=== PATIENT | male | born 1960 | race Caucasian/White ===

== ENCOUNTER 2020-09-04 14:57 | Emergency (ER) | payer MEDICARE, SELFPAY ==
[2020-09-04] VITALS (9 sets, daily range): BP systolic 114–154; BP diastolic 74–98; PULSE 73–114; RESP 16–22; TEMP 36.6–36.8; O2SAT 91–98; BMI 24.4
--- NOTE | 2020-09-04 14:59 | CT_ITS ---
PROCEDURE INFORMATION: Exam: CT Head Without Contrast Exam date and time: 09/04/2020 2:59 PM Age: 59 years old Clinical indication: Weakness, extremity; Patient HX: Right sided weakness; Additional info: Code stroke TECHNIQUE: Imaging protocol: Computed tomography of the head without contrast. Radiation optimization: All CT scans at this facility use at least one of these dose optimization techniques: automated exposure control; mA and/or kV adjustment per patient size (includes targeted exams where dose is matched to clinical indication); or iterative reconstruction. Other technique: STROKE PROTOCOL was implemented. COMPARISON: CR NSB NASAL BONES 04/28/2016 11:13 PM FINDINGS: Brain: Normal. No hemorrhage. Unremarkable white matter. No mass effect. Cerebral ventricles: No ventriculomegaly. Paranasal sinuses: Visualized sinuses are unremarkable. No fluid levels. Mastoid air cells: Visualized mastoid air cells are well aerated. Bones/joints: Unremarkable. No acute fracture. Soft tissues: Unremarkable. IMPRESSION: No acute intracranial abnormality. ASSESSMENT: ASPECTS ([place] Stroke Program Early CT Score) is 10.
--- NOTE | 2020-09-04 15:01 | HMH.EDGENADL ---
ED Disposition Clinical Impression: Stroke-like symptoms, Right sided weakness, Methamphetamine abuse, Urinary retention, Recurrent falls Disposition: Xfer Short-Term Hosp Condition on Discharge: Fair Time of Disposition: 18:29 - Critical Care Critical Care Time: Yes Attestation: On , the high probability of a clinically significant, sudden or life threatening deterioration of the following system(s) required my full and direct attention, intervention and personal management. The time I documented below is in addition to time spent performing reported procedures but includes the following listed in this critical care notation. Total Critical Care Time: 65 Vital system(s) involved:: Central Nervous System My critical care processes included: Assessment & monitoring of V/S, Initial and Re-exams, Data Review/Interpretation, Coordinating Care, Documentation Medical Decision Making - Medical Records Medical records reviewed: Yes: I reviewed the patient's medical records. - [place] Inquiry Pt receiving controlled substance: No Vital Signs: 09/04/20 14:57 Temperature 97.9 F Temperature Source Oral Pulse Rate [Left] 114 H Respiratory Rate 21 Blood Pressure [Right Arm] 154/98 H Blood Pressure Mean [Right Arm] 116 Blood Pressure Source [Right Arm] Automatic Cuff 02 Sat by Pulse Oximetry 94 L Oxygen Delivery Method Room Air - Lab Data Lab results reviewed: Yes: I reviewed the patient's lab results. Lab Results 09/04/20 13:06: WBC 19.9 H, RBC 4.66, Hgb 13.5 L, Hct 38.5 L, MCV 82.6, MCH 29.1, MCHC 35.2, RDW 14.3, Plt Count 277, MPV 8.0, Neut % (Auto) 89.2 H, Lymph % (Auto) 4.8 L, Wilkes % (Auto) 5.6, Eos % (Auto) 0.2, Baso % (Auto) 0.1, Neut # (Auto) 17.7 H, Lymph # (Auto) 1.0, Wilkes # (Auto) 1.1 H, Eos # (Auto) 0.0, Baso # (Auto) 0.0, Total Counted 100, Neutrophils % (Manual) 88 H, Lymphocytes % (Manual) 8 L, Monocytes % (Manual) 4, Platelet Estimate Normal, RBC Morphology Normal 09/04/20 13:06: Sodium 135 L, Potassium 3.6, Chloride 100, Carbon Dioxide 28, Anion Gap 10.6, BUN 11, Creatinine 0.60 L, Estimated GFR 138, Est GFR ( Amer) 167, Glucose 140 H, Calcium 10.6 H, Total Bilirubin 0.8, AST 25, ALT 30, Alkaline Phosphatase 97, Troponin I < 0.01, Total Protein 7.3, Albumin 3.9, Globulin 3.4 H, Albumin/Globulin Ratio 1.1 09/04/20 17:57: Urine Color Yellow, Urine Appearance Clear, Urine pH 6.5, Ur Specific [place] 1.015, Urine Protein Trace, Urine Glucose (UA) Negative, Urine Ketones Negative, Urine Blood Trace-l, Urine Nitrate Negative, Urine Bilirubin Negative, Urine Urobilinogen 4.0, Ur Leukocyte Esterase Negative, Urine RBC 3-5, Urine WBC Occasional, Ur Squamous Epith Cells Occasional, Urine Bacteria None 09/04/20 17:57: Urine Opiates Screen Negative, Urine Methadone Screen Negative, Ur Barbituates Screen Negative, Ur Phencyclidine Scrn Negative, U Benzodiazepines Scrn Negative, Urine Cocaine Screen Negative, U Marijuana (THC) Screen Positive H Result diagrams: 09/04/20 13:06 09/04/20 13:06 Orders (Tests/Meds): ED MEDICATIONS Discontinued Medications Generic Name Dose Route Start Last Admin Trade Name Freq PRN Reason Stop Dose Admin Iopamidol 100 ml 09/04/20 16:39 09/04/20 16:39 Iopamidol-370 (76%);100ml Bottle IV 09/04/20 16:40 100 ml ONCE ONE Administration Sodium Chloride 50 ml 09/04/20 16:39 09/04/20 16:39 0.9 % Sodium Chloride 50 Ml Vial IV 09/04/20 16:40 50 ml ONCE ONE Administration Sodium Chloride 10 ml 09/04/20 16:39 09/04/20 16:39 Sodium Chloride 0.9% 10ml Syr (Rad Only) IV 09/04/20 16:40 10 ml ONCE ONE Administration ORDERS Category Date Time Status Drug Screen,Urine Stat Lab 09/04/20 17:57 Results Troponin I Q3H Lab 09/04/20 18:15 Received Troponin I Q3H Lab 09/04/20 21:00 Ordered - CT Data CT Scan: Head, C-Spine Time Received: 15:[address] Reviewed: Yes: I have reviewed the patient's CT results Preliminary Findings: Normal/NAD - ECG Data *
[2020-09-04 15:06] LABS: Basophils % 0.1 % (0.1-2.0); Eosinophils % 0.2 % (0.1-12.0); Hematocrit 38.5 % (42.0-52.0); Hemoglobin 13.5 g/dL (14.1-18.0); Lymphocytes % 4.8 % (10-50); Mean Corpuscular HGB Conc 35.2 g/dL (31.8-35.4); Mean Corpuscular Hemoglobin 29.1 pg (27.0-31.2); Mean Corpuscular Volume 82.6 fl (80-94); Monocytes # 1.1 K/mm3 (0.1-1.0); Monocytes % 5.6 % (1.7-9.3); Neutrophils # 17.7 K/mm3 (1.8-7.8); Neutrophils % 89.2 % (37.0-80.0); Platelet Count 277 K/mm3 (142-424); Red Blood Count 4.66 M/mm3 (4.60-6.20); Red Cell Distribution Width 14.3 % (11.5-17.5); White Blood Count 19.9 K/mm3 (4.8-10.8)
[2020-09-04 15:07] LABS: MANUAL DIFFERENTIAL MANUAL DIFFERENTIAL (MANUAL DIFF)
[2020-09-04 15:15] LABS: Alanine Aminotransferase 30 U/L (12-78); Albumin Level 3.9 g/dl (3.5-5.0); Albumin/Globulin Ratio 1.1 (1.1-1.8); Alkaline Phosphatase 97 U/L (38-126); Anion Gap 10.6 mEq/L (5-15); Aspartate Amino Transferase 25 U/L (17-59); Bilirubin,Total 0.8 mg/dl (0.2-1.3); Blood Urea Nitrogen 11 mg/dl (9-20); Calcium 10.6 mg/dl (8.4-10.2); Carbon Dioxide 28 mmol/L (22.0-30.0); Chloride 100 mmol/L (98-107); Estimated Glomerular Filt Rate 138 ml/min (>60); GFR (African American) 167 ML/MIN (>60); Globulin 3.4 g/dL (1.3-3.2); Glucose 140 mg/dl (74-100); Potassium 3.6 mmoL/L (3.5-5.1); Sodium 135 mmol/L (136-145); Total Protein,Serum 7.3 g/dl (6.3-8.2)
[2020-09-04 15:17] LABS: Lymphocytes % 8 % (10-50); Monocytes % 4 % (2-9); Neutrophils % 88 % (42-76); Platelet Estimate Normal; RBC Morphology Normal; Total Cells Counted 100
[2020-09-04 15:29] LABS: Troponin I < 0.01 ng/ml (0.00-0.034)
--- NOTE | 2020-09-04 15:39 | CT_ITS ---
PROCEDURE INFORMATION: Exam: CT Angiography Neck With Contrast Exam date and time: 09/04/2020 3:39 PM Age: 59 years old Clinical indication: Patient HX: Right sided weakness; Additional info: Code stroke TECHNIQUE: Imaging protocol: Computed tomography angiography of the neck with contrast. 3D rendering (Not supervised by radiologist): MIP and/or 3D reconstructed images were created by the technologist. Radiation optimization: All CT scans at this facility use at least one of these dose optimization techniques: automated exposure control; mA and/or kV adjustment per patient size (includes targeted exams where dose is matched to clinical indication); or iterative reconstruction. Contrast material: ISOVUE; Contrast volume: 100 ml; Contrast route: INTRAVENOUS (IV); COMPARISON: CT HEAD/BRAIN WO CON 09/04/2020 3:00 PM FINDINGS: Right common carotid artery: No stenosis. No dissection or occlusion. Right internal carotid artery: No stenosis of the extracranial segment. No dissection or occlusion. Right external carotid artery: No occlusion or stenosis of the origin. Left common carotid artery: No stenosis. No dissection or occlusion. Left internal carotid artery: No stenosis of the extracranial segment. No dissection or occlusion. Left external carotid artery: No occlusion or stenosis of the origin. Right vertebral artery: The right vertebral artery is hypoplastic. Left vertebral artery: No stenosis. No dissection or occlusion. Soft tissues: Normal. No significant soft tissue swelling. Bones/joints: Degeneration in the cervical spine. Mediastinal space: There is prominence of the upper left mediastinum which is only partially imaged. The trachea appears to be displaced rightward. IMPRESSION: No internal carotid artery stenosis by NASCET criteria. REFERENCES: NASCET CRITERIA. The degree of internal carotid artery stenosis is based on NASCET criteria. Normal is no stenosis. Mild is less than 50% stenosis. Moderate is 50-69% stenosis. Severe is 70% to 99% stenosis. Total occlusion is no detectable patent lumen.
--- NOTE | 2020-09-04 15:39 | CT_ITS ---
PROCEDURE INFORMATION: Exam: CT Angiography Head With Contrast, Arteriography Exam date and time: 09/04/2020 3:39 PM Age: 59 years old Clinical indication: Patient HX: Weakness on right side; Additional info: Code stroke TECHNIQUE: Imaging protocol: Computed tomography angiography of the head with contrast. Exam focused on the arteries. 3D rendering (Not supervised by radiologist): MIP and/or 3D reconstructed images were created by the technologist. Radiation optimization: All CT scans at this facility use at least one of these dose optimization techniques: automated exposure control; mA and/or kV adjustment per patient size (includes targeted exams where dose is matched to clinical indication); or iterative reconstruction. Contrast material: ISOVUE; Contrast volume: 100 ml; Contrast route: INTRAVENOUS (IV); COMPARISON: CT HEAD/BRAIN WO CON 09/04/2020 3:00 PM FINDINGS: ANTERIOR CIRCULATION: Right internal carotid artery: Unremarkable. Intracranial segment is patent with no significant stenosis. No aneurysm. Right middle cerebral artery: Unremarkable. No occlusion or significant stenosis. No aneurysm. Right anterior cerebral artery: Unremarkable. No occlusion or significant stenosis. No aneurysm. Left internal carotid artery: Unremarkable. Intracranial segment is patent with no significant stenosis. No aneurysm. Left middle cerebral artery: Unremarkable. No occlusion or significant stenosis. No aneurysm. Left anterior cerebral artery: The left A1 segment is hypoplastic. POSTERIOR CIRCULATION: Right vertebral artery: Unremarkable. No occlusion or significant stenosis. No aneurysm. Left vertebral artery: Unremarkable. No occlusion or significant stenosis. No aneurysm. Basilar artery: Unremarkable. No occlusion or significant stenosis. No aneurysm. Right posterior cerebral artery: The right posterior cerebral artery is constituted from the basilar artery. Left posterior cerebral artery: origin of the left posterior cerebral artery. Brain: No definite mass, mass effect, or midline shift. Cerebral ventricles: No significant ventriculomegaly. Bones/joints: Left mastoidectomy. Soft tissues: Unremarkable. IMPRESSION: No large vessel occlusion.
--- NOTE | 2020-09-04 16:41 | ECG_ITS ---
APPROVED REPORT Exam: Resting ECG HR:107 bpm ECG Measurements Heart Rate 107 AXES NJ 168 P 71 QRSd 88 QRS 34 QT 332 T 64 QTc 443 Conclusion Sinus tachycardia Possible Left atrial enlargement Old anteroseptal changes Abnormal ECG Electronically signed by : Juan David Pierce, 09/05/2020 20:41:07
[2020-09-04 18:02] LABS: Microscopic, Urine URINE MICROSCOPIC (MICROSCOPIC)
[2020-09-04 18:06] LABS: Appearance,Urine CLEAR (Clear); Bilirubin,Urine Negative (Negative); Blood, Urine TRACE-L (Negative); Color,Urine YELLOW (Yellow); Glucose,Urine (UA) Negative (Negative); Ketones,Urine Negative (Negative); Leukocyte Esterase,Urine Negative (Negative); Nitrate,Urine Negative (Negative); PH,Urine 6.5 (5.0-8.5); Protein,Urine TRACE (Negative); Specific Gravity, Urine 1.015 (1.005-1.030)
--- NOTE | 2020-09-04 18:06 | PC.NURSE ---
placed call to [facility] for [facility]
[2020-09-04 18:16] LABS: Barbiturates Screen,Urine Negative ng/ml (<200)
[2020-09-04 18:17] LABS: Benzodiazepines Screen,Urine Negative ng/ml (<200)
[2020-09-04 18:18] LABS: Cannabinoid Screen,Urine Positive ng/ml (<50); Cocaine Screen,Urine Negative ng/ml (<300)
[2020-09-04 18:19] LABS: Methadone Screen,Urine Negative ng/ml (<300); Squamous Epithelial Cell,Urine Occasional #/hpf (0-5); WBC,Urine Occasional #/hpf (0-3)
[2020-09-04 18:20] LABS: Opiate Screen,Urine Negative ng/ml (<300); Phencyclidine Screen,Urine Negative ng/ml (<25)
[2020-09-04 18:29] LABS: Amphetamine/Metha Screen,Urine Positive ng/ml (<1000)
[2020-09-04 18:50] LABS: Troponin I < 0.01 ng/ml (0.00-0.034)
--- NOTE | 2020-09-04 19:01 | PC.NURSE ---
Patients daughter is reported as next of kin, Name is Jewels Campos, [phone], son is Brando Campos [id number]
--- NOTE | 2020-09-04 19:06 | PC.WOUNDNOTE ---
laceration on greater right toe. Left open to air per md.
== END 2020-09-04 20:47 | disposition short-term general hospital (02) ==
PROVIDERS: Emergency Provider Family Medicine; PCP Pediatrics
DX: I63.89 Other cerebral infarction (principal); G81.93 Hemiplegia, unspecified affecting right nondominant side; R29.713 NIHSS score 13; F12.10 Cannabis abuse, uncomplicated; F15.10 Other stimulant abuse, uncomplicated; R29.6 Repeated falls
CPT/HCPCS: 36415; 70450; 70496; 70498; 80053; 80305; 81001; 84484; 85007; 85025; 93005; 99284; Q9967

== ENCOUNTER 2021-01-28 01:00 | Observation (INO) | payer MEDICARE, SELFPAY ==
[2021-01-28] VITALS (7 sets, daily range): BP systolic 100–125; BP diastolic 57–82; PULSE 84–102; RESP 16–18; TEMP 36.4–36.6; O2SAT 96–100; BMI 23.0; BMI 28.1; BMI 26.8
--- NOTE | 2021-01-28 01:03 | CT_ITS ---
PROCEDURE INFORMATION: Exam: CT Abdomen And Pelvis With Contrast Exam date and time: 01/28/2021 1:03 AM Age: 60 years old Clinical indication: Abdominal pain; Additional info: Abd pain TECHNIQUE: Imaging protocol: Computed tomography of the abdomen and pelvis with contrast. Radiation optimization: All CT scans at this facility use at least one of these dose optimization techniques: automated exposure control; mA and/or kV adjustment per patient size (includes targeted exams where dose is matched to clinical indication); or iterative reconstruction. Contrast material: ISOVUE; Contrast volume: 75 ml; Contrast route: IV; COMPARISON: No relevant prior studies available. FINDINGS: Lungs: Mild dependent atelectasis. Liver: Unremarkable. No intrahepatic biliary dilation. Gallbladder and bile ducts: Cholelithiasis. No gallbladder wall thickening. No biliary dilation. Pancreas: Unremarkable. No main pancreatic duct dilation. Spleen: Calcified granulomas in the spleen. Adrenal glands: Unremarkable. Kidneys and ureters: Left lower pole cyst measuring 1.4 cm in size. Right renal caliceal calculi measuring up to 0.2 cm in size. No hydronephrosis. Stomach and bowel: Large colonic stool burden suggesting constipation. No small bowel dilation or obstruction. Appendix: Normal appendix. Intraperitoneal space: No pneumoperitoneum. No ascites. Vasculature: No abdominal aortic aneurysm. Lymph nodes: No enlarged lymph nodes. Urinary bladder: Bladder is fluid-filled, with borderline wall thickening. There is layering high attenuation fluid within the dependent portion of the bladder suggesting hemorrhage. Reproductive: Prostate gland is mildly enlarged. Coarse calcifications are present within the prostate gland. Bones/joints: No acute fracture. Multilevel spondylosis. Spinal canal stenosis appears high-grade at L3-L4 and L4-L5. Moderate to advanced multilevel neural foraminal narrowing. Soft tissues: Small bilateral inguinal hernias containing fat. There is a small to moderate size umbilical hernia containing fat. There is mild nonspecific vascular congestion within the hernia sac. IMPRESSION: 1. Distended bladder with borderline wall thickening and layering high attenuation fluid suggesting hematuria. Correlation with urinalysis is recommended. 2. Large colonic stool burden compatible with constipation. 3. Other chronic findings as above.
--- NOTE | 2021-01-28 01:03 | CT_ITS ---
PROCEDURE INFORMATION: Exam: CT Lumbar Spine With Contrast Exam date and time: 01/28/2021 1:03 AM Age: 60 years old Clinical indication: Low back pain; Additional info: Abd pain TECHNIQUE: Imaging protocol: Computed tomography images of the lumbar spine with intravenous contrast. Radiation optimization: All CT scans at this facility use at least one of these dose optimization techniques: automated exposure control; mA and/or kV adjustment per patient size (includes targeted exams where dose is matched to clinical indication); or iterative reconstruction. Contrast material: ISOVUE; Contrast volume: 75 ml; Contrast route: IV; COMPARISON: No relevant prior studies available. FINDINGS: Vertebrae: Mild dextroconvex lumbar curvature. Minimal right lateral listhesis and grade 1 retrolisthesis of L3 on L4. Lumbar vertebral body heights are maintained. No acute fracture. Remote, ununited fracture defect of the left L1 transverse process. Multilevel disc height loss and Schmorl's node formation, most advanced at L3-L4 and L4-L5. L1-L2: Circumferential disc bulge. Mild degenerative facet hypertrophy and ligamentum flavum thickening. Mild spinal canal stenosis. Mild left greater than right neural foraminal narrowing. L2-L3: Circumferential disc bulging. Mild to moderate facet hypertrophy and ligamentum flavum thickening. Moderate spinal canal stenosis. Moderate to severe lateral recess effacement, which may affect the descending L3 nerve roots. Moderate left greater than right neural foraminal stenosis. L3-L4: Circumferential disc bulging and degenerative endplate spurring. Moderate facet hypertrophy and ligamentum flavum thickening. Moderate to severe spinal canal stenosis. Severe lateral recess effacement, with probable impingement of the descending L4 nerve roots. Severe left and moderate to severe right neural foraminal narrowing. L4-L5: Circumferential disc bulging and degenerative endplate spurring. Marked degenerative facet hypertrophy and ligamentum flavum thickening. Severe spinal canal and lateral recess stenosis with impingement of the descending L5 nerve roots. Severe right and moderate to severe left neural foraminal narrowing. L5-S1: Circumferential disc bulging. Moderate to marked facet hypertrophy. Mild ligamentum flavum thickening. Minimal effacement of the spinal canal and lateral recesses. Moderate right and [id number] left neural foraminal narrowing. Soft tissues: No paravertebral edema or fluid collection. Findings within the abdomen/pelvis reported separately. IMPRESSION: 1. No acute lumbar spine fracture. Mild dextroconvex curvature. Mild degenerative malalignment at L3-L4. 2. Multilevel spondylosis as detailed above.
--- NOTE | 2021-01-28 01:38 | HMH.EDGENADL ---
ED Disposition Clinical Impression: Urinary retention, Methamphetamine abuse, Lumbar spondylosis UTI (urinary tract infection) Qualifiers: Urinary tract infection type: acute cystitis Hematuria presence: without hematuria Qualified Code(s): N30.00 - Acute cystitis without hematuria Disposition: Admitted As Inpatient Condition on Discharge: Good - Critical Care Critical Care Time: No Attestation: On 01/28/21, the high probability of a clinically significant, sudden or life threatening deterioration of the following system(s) required my full and direct attention, intervention and personal management. The time I documented below is in addition to time spent performing reported procedures but includes the following listed in this critical care notation. Medical Decision Making - Medical Records Medical records reviewed: Yes: I reviewed the patient's medical records. - [place] Inquiry Pt receiving controlled substance: No Vital Signs: 01/28/21 00:53 01/28/21 03:00 01/28/21 03:31 Temperature 97.9 F Temperature Source Oral Pulse Rate 93 H 92 H Pulse Rate [Right] 102 H Respiratory Rate 18 Blood Pressure 100/75 L 122/74 Blood Pressure [Right Arm] 125/82 Blood Pressure Mean 82 85 Blood Pressure Mean [Right Arm] 96 02 Sat by Pulse Oximetry 100 96 98 Oxygen Delivery Method Room Air - Lab Data Lab results reviewed: Yes: I reviewed the patient's lab results. Lab Results 01/28/21 01:35: Urine Color Yellow, Urine Appearance Clear, Urine pH 8.0, Ur Specific [place] 1.020, Urine Protein 1+, Urine Glucose (UA) Negative, Urine Ketones Negative, Urine Blood 1+, Urine Nitrate Positive, Urine Bilirubin Negative, Urine Urobilinogen 0.2, Ur Leukocyte Esterase 3+ A, Urine RBC 3-5, Urine WBC 5-10, Triple Phos Crystals 1+, Urine Bacteria 4+, Urine Mucus 1+ 01/28/21 01:35: Urine Opiates Screen Negative, Urine Methadone Screen Negative, Ur Barbituates Screen Negative, Ur Phencyclidine Scrn Negative, Ur Amphetamines Screen Principal Security Architect, U Benzodiazepines Scrn Positive H, Urine Cocaine Screen Negative, U Marijuana (THC) Screen Positive H 01/28/21 01:35: Lactate 1.1 01/28/21 01:40: WBC 7.7, RBC 5.02, Hgb 12.9 L, Hct 40.4 L, MCV 80.5, MCH 25.6 L, MCHC 31.8, RDW 18.1 H, Plt Count 320, MPV 8.0, Neut % (Auto) 61.5, Lymph % (Auto) 28.0, [place] % (Auto) 7.1, Eos % (Auto) 1.5, Baso % (Auto) 1.9, Neut # (Auto) 4.7, Lymph # (Auto) 2.2, [place] # (Auto) 0.6, Eos # (Auto) 0.1, Baso # (Auto) 0.2, ESR 54 H 01/28/21 01:40: Sodium 136, Potassium 4.0, Chloride 104, Carbon Dioxide 28, Anion Gap 8.0, BUN 16, Creatinine 0.60 L, Estimated Creat Clear 157, Estimated GFR 138, Est GFR ( Amer) 167, Glucose 86, Calcium 10.2, Phosphorus 2.9, Magnesium 1.7, Total Bilirubin 0.2, AST 25, ALT 21, Alkaline Phosphatase 66, Total Creatine Kinase 68, C-Reactive Protein 95.3 H, Total Protein 6.1 L, Albumin 3.5, Globulin 2.6, Albumin/Globulin Ratio 1.3, Salicylates < 1.0 L, Acetaminophen < 10 L 01/28/21 01:40: Plasma/Serum Alcohol < 10 01/28/21 01:40: NT-Pro-B Natriuret Pep 61.4 Result diagrams: 01/28/21 01:40 01/28/21 01:40 Orders (Tests/Meds): ED MEDICATIONS Generic Name Dose Route Start Last Admin Trade Name Freq PRN Reason Stop Dose Admin Sodium Chloride 1,000 mls @ 999 mls/hr 01/28/21 01:45 01/28/21 01:40 Sod Chlor 0.9% 1000ml Bag IV 01/28/21 02:45 999 mls/hr .Q1H1M PRESTON Administration Ceftriaxone Sodium 1 gm/ 50 mls @ 100 mls/hr 01/28/21 03:30 01/28/21 03:25 Sodium Chloride IV 02/11/21 03:29 100 mls/hr Q24H PRESTON Administration Discontinued Medications Generic Name Dose Route Start Last Admin Trade Name Freq PRN Reason Stop Dose Admin Ertapenem 1 gm/ Sodium 50 mls @ 100 mls/hr 01/28/21 04:00 01/28/21 04:04 Chloride IV 02/11/21 03:59 Not Given Q24H PRESTON Iopamidol 75 ml 01/28/21 02:45 01/28/21 02:45 Iopamidol-370 (76%);100ml Bottle IV 01/28/21 02:46 75 ml ONCE ONE Administration Sodium Chloride 10 ml 12
[2021-01-28 01:47] LABS: Basophils # 0.2 K/mm3 (0-0.2); Basophils % 1.9 % (0.1-2.0); Eosinophils # 0.1 K/mm3 (0.0-0.4); Eosinophils % 1.5 % (0.1-12.0); Hematocrit 40.4 % (42.0-52.0); Hemoglobin 12.9 g/dL (14.1-18.0); Lymphocytes # 2.2 K/mm3 (0.7-4.5); Mean Corpuscular HGB Conc 31.8 g/dL (31.8-35.4); Mean Corpuscular Hemoglobin 25.6 pg (27.0-31.2); Mean Corpuscular Volume 80.5 fl (80-94); Monocytes # 0.6 K/mm3 (0.1-1.0); Monocytes % 7.1 % (1.7-9.3); Neutrophils # 4.7 K/mm3 (1.8-7.8); Neutrophils % 61.5 % (37.0-80.0); Platelet Count 320 K/mm3 (142-424); Red Blood Count 5.02 M/mm3 (4.60-6.20); Red Cell Distribution Width 18.1 % (11.5-17.5); White Blood Count 7.7 K/mm3 (4.8-10.8)
[2021-01-28 01:58] LABS: Microscopic, Urine URINE MICROSCOPIC (MICROSCOPIC)
[2021-01-28 02:00] LABS: Appearance,Urine CLEAR (Clear); Bilirubin,Urine Negative (Negative); Blood, Urine 1+ (Negative); Color,Urine YELLOW (Yellow); Glucose,Urine (UA) Negative (Negative); Ketones,Urine Negative (Negative); Leukocyte Esterase,Urine 3+ (Negative); Nitrate,Urine POSITIVE (Negative); Protein,Urine 1+ (Negative); Urobilinogen,Urine 0.2 EU/dl (0.2)
[2021-01-28 02:07] LABS: Alanine Aminotransferase 21 U/L (12-78); Albumin Level 3.5 g/dl (3.5-5.0); Albumin/Globulin Ratio 1.3 (1.1-1.8); Alkaline Phosphatase 66 U/L (38-126); Aspartate Amino Transferase 25 U/L (17-59); Bilirubin,Total 0.2 mg/dl (0.2-1.3); Blood Urea Nitrogen 16 mg/dl (9-20); Calcium 10.2 mg/dl (8.4-10.2); Carbon Dioxide 28 mmol/L (22.0-30.0); Chloride 104 mmol/L (98-107); Creatine Kinase 68 U/L (55-170); Creatinine Clearance Estimated 157 mL/min (50-200); Estimated Glomerular Filt Rate 138 ml/min (>60); GFR (African American) 167 ML/MIN (>60); Globulin 2.6 g/dL (1.3-3.2); Glucose 86 mg/dl (74-100); Magnesium 1.7 mg/dl (1.6-2.3); Phosphorous 2.9 mg/dl (2.5-4.5); Sodium 136 mmol/L (136-145); Total Protein,Serum 6.1 g/dl (6.3-8.2)
[2021-01-28 02:09] LABS: Acetaminophen < 10 ug/ml (10-30); Ethyl Alcohol < 10 mg/dl (0-10); Salicylate < 1.0 mg/dL (2.0-20.0)
[2021-01-28 02:12] LABS: C-Reactive Protein 95.3 mg/L (0-4)
[2021-01-28 02:13] LABS: Barbiturates Screen,Urine Negative ng/ml (<200)
[2021-01-28 02:14] LABS: Benzodiazepines Screen,Urine Positive ng/ml (<200)
[2021-01-28 02:16] LABS: Cocaine Screen,Urine Negative ng/ml (<300); Methadone Screen,Urine Negative ng/ml (<300)
[2021-01-28 02:17] LABS: Bacteria,Urine 4+ /lpf; Cannabinoid Screen,Urine Positive ng/ml (<50); Mucus,Urine 1+ /lpf; Triple Phosphate Crystal,Urine 1+ /lpf
[2021-01-28 02:18] LABS: Opiate Screen,Urine Negative ng/ml (<300)
[2021-01-28 02:19] LABS: Phencyclidine Screen,Urine Negative ng/ml (<25)
[2021-01-28 02:27] LABS: Erythrocyte Sedimentation Rate 54 mm/hr (0-20)
--- NOTE | 2021-01-28 03:30 | PC.NURSE ---
16 f calix inserted for acute retention
[2021-01-28 03:36] LABS: Lactic Acid 1.1 mmol/L (0.7-2.1)
--- NOTE | 2021-01-28 03:41 | PC.NURSE ---
kayleigh on phone with dr reyes @ this time
[2021-01-28 04:10] LABS: Coronavirus 19, PCR Not Detected (NotDetected); Influenza A, PCR Not Detected (NotDetected); Influenza B, PCR Not Detected (NotDetected)
[2021-01-28 04:27] LABS: NT Pro Brain Natriuretic Pep. 61.4 pg/mL (0-125)
--- NOTE | 2021-01-28 05:27 | XR_ITS ---
PROCEDURE INFORMATION: Exam: XR Chest Exam date and time: 01/28/2021 5:27 AM Age: 60 years old Clinical indication: Sternal or substernal pain TECHNIQUE: Imaging protocol: XR of the chest. Views: 1 view. COMPARISON: CT ABDOMEN PELVIS W CON 01/28/2021 2:00 AM FINDINGS: Lungs: Unremarkable. No consolidation. Pleural spaces: Unremarkable. No pleural effusion. No pneumothorax. Heart/Mediastinum: Unremarkable. No cardiomegaly. Bones/joints: Unremarkable. IMPRESSION: No acute findings.
--- NOTE | 2021-01-28 06:04 | PC.NURSE ---
PT ARRIVED TO FLOOR VIA STRETCHER FROM ED W/STAFF @ [phone]
--- NOTE | 2021-01-28 07:31 | PC.NURSE ---
pt unable to effectively complete admission questions, nor state what meds he takes at home
--- NOTE | 2021-01-28 07:48 | P.CONPHA_ITS ---
[facility] Pharmacy VTE Monitoring - Patient Demographics Admission date: 01/28/21 Report Date: 01/28/21 Time: 07:48 Allergies/Adverse Reactions: Patient Allergies codeine [CODEINE] Allergy (Unknown, Verified 01/28/21 04:03) I-RASH quetiapine [From SEROQUEL] Allergy (Unknown, Verified 01/28/21 04:03) Height: 1.83 m Weight: 89.613 kg Patient Problems: Current Active Problems UTI (urinary tract infection) (Acute) Lumbar spondylosis (Acute) Methamphetamine abuse (Acute) Urinary retention (Acute) - VTE Risk Labs: VTE Related Lab Results Hgb 12.9 g/dL (14.1-18.0) L 01/28/21 01:40 Hct 40.4 % (42.0-52.0) L 01/28/21 01:40 Plt Count 320 K/mm3 (142-424) 01/28/21 01:40 BUN 16 mg/dl (9-20) 01/28/21 01:40 Creatinine 0.60 mg/dl (0.66-1.25) L 01/28/21 01:40 Estimated Creat Clear 157 mL/min (50-200) 01/28/21 01:40 Was VTE Risk Assessment Performed: Yes VTE Score: 3 VTE Risk Level: Low Risk Clinical Trial Participant: No - Prophylaxis VTE Prophylaxis Ordered?: Yes Types of VTE Prophylaxis: TEDS Knee High
[2021-01-28 09:17] LABS: Basophils # 0.1 K/mm3 (0-0.2); Basophils % 1.7 % (0.1-2.0); Eosinophils # 0.2 K/mm3 (0.0-0.4); Eosinophils % 2.7 % (0.1-12.0); Hematocrit 36.1 % (42.0-52.0); Lymphocytes # 1.5 K/mm3 (0.7-4.5); Lymphocytes % 26.3 % (10-50); Mean Corpuscular HGB Conc 32.1 g/dL (31.8-35.4); Mean Corpuscular Hemoglobin 26.1 pg (27.0-31.2); Mean Corpuscular Volume 81.2 fl (80-94); Mean Platelet Volume 7.9 fl (7.4-10.4); Monocytes # 0.5 K/mm3 (0.1-1.0); Monocytes % 8.3 % (1.7-9.3); Neutrophils # 3.4 K/mm3 (1.8-7.8); Neutrophils % 61.1 % (37.0-80.0); Platelet Count 254 K/mm3 (142-424); Red Blood Count 4.44 M/mm3 (4.60-6.20); Red Cell Distribution Width 18.2 % (11.5-17.5); White Blood Count 5.5 K/mm3 (4.8-10.8)
[2021-01-28 09:21] LABS: Hemoglobin 11.6 g/dL (14.1-18.0)
[2021-01-28 09:22] LABS: Chloride 107 mmol/L (98-107); Sodium 138 mmol/L (136-145)
[2021-01-28 09:23] LABS: Potassium 3.9 mmoL/L (3.5-5.1)
[2021-01-28 09:25] LABS: Blood Urea Nitrogen 12 mg/dl (9-20)
[2021-01-28 09:26] LABS: Anion Gap 7.9 mEq/L (5-15); Calcium 10.3 mg/dl (8.4-10.2); Carbon Dioxide 27 mmol/L (22.0-30.0); Creatinine Clearance Estimated 168 mL/min (50-200); Estimated Glomerular Filt Rate 138 ml/min (>60); GFR (African American) 167 ML/MIN (>60); Glucose 95 mg/dl (74-100); Magnesium 1.8 mg/dl (1.6-2.3)
--- NOTE | 2021-01-28 09:56 | HMH.HPDC ---
General - General Admission date:: 01/28/21 Discharge date: 01/28/21 *Admission Date: 01/28/21 *Chief complaint: Back pain/amphetamine use/urinary retention *History of present illness: 60-year-old unfortunate white male who has a long history of polysubstance abuse, follows with Dr. Torre in [place] but he will give me any pain pills so I have to use amphetamines who has a history of urinary retention and uses self catheters at home but apparently is run out of these. He was having a great deal of pain and discomfort over the past 24 hours and so snorted amphetamines yesterday, this caused significant lumbar spasm and pain as well as change in mental status and he was brought to the emergency department. Acevedo catheter was placed, found to have evidence of UTI. Admitted for further evaluation. [facility] History I have reviewed the patient's past medical history: Yes Medical History: Denies:: Cancer, Diabetes Mellitus Type 1, Diabetes Mellitus Type 2, MRSA *Have you ever received a pneumonia vaccine?: No *Have you received a flu vaccine this season?: No Amputation: No - *Social History Smoking Status: Current every day smoker Tobacco Type: cigarettes # Packs/Day (cigarettes): 1 Alcohol Intake: current Substance Use Type: unknown *Occupational Status:: unemployed, other *Travel in the last 8 weeks: None Family Hx:: Unable to obtain, Non-contributory Review of Systems - Review of Systems Review of systems:: pertinent systems reviewed and negative unless documented below - *Neurologic Denies localized weakness Exam Vital signs and Labs for Last 24 Hours: Temp Pulse Resp BP Pulse Ox 97.6 F 90 16 122/57 L 98 01/28/21 08:00 01/28/21 08:00 01/28/21 08:00 01/28/21 08:00 01/28/21 08:00 Laboratory Results - last 24 hr 01/28/21 01:35: Urine Color Yellow, Urine Appearance Clear, Urine pH 8.0, Ur Specific [place] 1.020, Urine Protein 1+, Urine Glucose (UA) Negative, Urine Ketones Negative, Urine Blood 1+, Urine Nitrate Positive, Urine Bilirubin Negative, Urine Urobilinogen 0.2, Ur Leukocyte Esterase 3+ A, Urine RBC 3-5, Urine WBC 5-10, Triple Phos Crystals 1+, Urine Bacteria 4+, Urine Mucus 1+ 01/28/21 01:35: Urine Opiates Screen Negative, Urine Methadone Screen Negative, Ur Barbituates Screen Negative, Ur Phencyclidine Scrn Negative, Ur Amphetamines Screen Rn Social Services, U Benzodiazepines Scrn Positive H, Urine Cocaine Screen Negative, U Marijuana (THC) Screen Positive H 01/28/21 01:35: Lactate 1.1 01/28/21 01:40: WBC 7.7, RBC 5.02, Hgb 12.9 L, Hct 40.4 L, MCV 80.5, MCH 25.6 L, MCHC 31.8, RDW 18.1 H, Plt Count 320, MPV 8.0, Neut % (Auto) 61.5, Lymph % (Auto) 28.0, [place] % (Auto) 7.1, Eos % (Auto) 1.5, Baso % (Auto) 1.9, Neut # (Auto) 4.7, Lymph # (Auto) 2.2, [place] # (Auto) 0.6, Eos # (Auto) 0.1, Baso # (Auto) 0.2, ESR 54 H 01/28/21 01:40: Sodium 136, Potassium 4.0, Chloride 104, Carbon Dioxide 28, Anion Gap 8.0, BUN 16, Creatinine 0.60 L, Estimated Creat Clear 157, Estimated GFR 138, Est GFR ( Amer) 167, Glucose 86, Calcium 10.2, Phosphorus 2.9, Magnesium 1.7, Total Bilirubin 0.2, AST 25, ALT 21, Alkaline Phosphatase 66, Total Creatine Kinase 68, C-Reactive Protein 95.3 H, Total Protein 6.1 L, Albumin 3.5, Globulin 2.6, Albumin/Globulin Ratio 1.3, Salicylates < 1.0 L, Acetaminophen < 10 L 01/28/21 01:40: Plasma/Serum Alcohol < 10 01/28/21 01:40: NT-Pro-B Natriuret Pep 61.4 01/28/21 04:00: SARS-CoV-2 (PCR) Not detected, Influenza A Untype (PCR) Not detected, Influenza Type B (PCR) Not detected 01/28/21 09:00: WBC 5.5 D, RBC 4.44 L, Hgb 11.6 L D, Hct 36.1 L, MCV 81.2, MCH 26.1 L, MCHC 32.1, RDW 18.2 H, Plt Count 254, MPV 7.9, Neut % (Auto) 61.1, Lymph % (Auto) 26.3, [place] % (Auto) 8.3, Eos % (Auto) 2.7, Baso % (Auto) 1.7, Neut # (Auto) 3.4, Lymph # (Auto) 1.5, [place] # (Auto) 0.5, Eos # (Auto) 0.2, Baso # (Auto) 0.1 01/28/21 09:00: Sodium 138, Potassium 3.9, Chloride 107, Carbon Dioxide 27, Anion Gap 7.9, BUN 12, Creatinine 0.60 L, Es
--- NOTE | 2021-01-28 10:26 | HMH.PHAINT ---
DISCHARGE MEDICATION COUNSELING PROVIDED. DISCUSSED SHORT-COURSE OMNICEF. PATIENT ENDORSED NO QUESTIONS AT THIS TIME
[2021-02-16 14:16] LABS: Amphetamine Positive (.); Amphetamine (GC/MS) 4986 ng/mL (Cutoff=500); Amphetamines Positive (.); Methamphetamine Positive (.); Methamphetamine (GC/MS) >3000 ng/mL (Cutoff=500)
== END 2021-01-28 13:27 | disposition home or self-care (01) ==
LOC: ER 02:38 → 2ND 04:00
PROVIDERS: Admitting Provider Internal Medicine Adolescent Medicine; Emergency Provider Emergency Medicine; Visit Provider Internal Medicine Adolescent Medicine
DX: N39.0 Urinary tract infection, site not specified (principal); F17.210 Nicotine dependence, cigarettes, uncomplicated; F15.10 Other stimulant abuse, uncomplicated; R33.9 Retention of urine, unspecified; M47.816 Spondylosis without myelopathy or radiculopathy, lumbar region; Z20.822 Contact with and (suspected) exposure to COVID-19; R06.9 Unspecified abnormalities of breathing
CPT/HCPCS: G0378; 71045; 72132; 74177; 80048; 80053; 80305; 80324; 80329; 81001; 82550; 83605; 83735; 83880; 84100; 85025; 85651; 86140; 87040; 87086; 87088; 87186; 96365; 96367; 96375; 99284; C9803; Q9967; U0003; U0005

== ENCOUNTER 2021-04-10 21:55 | Emergency (ER) | payer MEDICARE, SELFPAY ==
[2021-04-10 21:56] VITALS: BP 128/81; PULSE 101; RESP 20; TEMP 36.7; O2SAT 97; BMI 27.8
--- NOTE | 2021-04-11 00:12 | CT_ITS ---
PROCEDURE INFORMATION: Exam: CT Head Without Contrast Exam date and time: 04/11/2021 12:12 AM Age: 60 years old Clinical indication: Pain; Headache not specified TECHNIQUE: Imaging protocol: Computed tomography of the head without contrast. Radiation optimization: All CT scans at this facility use at least one of these dose optimization techniques: automated exposure control; mA and/or kV adjustment per patient size (includes targeted exams where dose is matched to clinical indication); or iterative reconstruction. COMPARISON: CT ANGIO HEAD 09/04/2020 4:15 PM FINDINGS: Brain: There is mild diffuse enlargement CSF containing spaces consistent global parenchymal volume loss. No acute intracranial hemorrhage. No evidence of acute territorial infarct or significant cerebral edema. No midline shift or significant mass effect. Cerebral ventricles: Unchanged calcification along the left lateral ventricle. No hydrocephalus. Paranasal sinuses: The paranasal sinuses are clear. Mastoid air cells: The mastoid air cells are clear. Postsurgical changes of the left mastoid. Orbital cavity: The orbits are unremarkable. Bones/joints: No acute fracture. Soft tissues: The superficial soft tissues are normal. IMPRESSION: 1. No acute intracranial hemorrhage or large territorial infarct. Recommend correlation with history/physical exam if clinical concern persists consider further evaluation with MRI. 2. Other findings as above.
--- NOTE | 2021-04-11 00:12 | CT_ITS ---
PROCEDURE INFORMATION: Exam: CT Lumbar Spine With Contrast Exam date and time: 04/11/2021 12:12 AM Age: 60 years old Clinical indication: Low back pain TECHNIQUE: Imaging protocol: Computed tomography images of the lumbar spine with intravenous contrast. Radiation optimization: All CT scans at this facility use at least one of these dose optimization techniques: automated exposure control; mA and/or kV adjustment per patient size (includes targeted exams where dose is matched to clinical indication); or iterative reconstruction. 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 No acute fracture. Lumbar vertebral body heights are maintained. Transitional anatomy at the lumbosacral junction (type 1 B) mild dextroconvex curvature of the lumbar spine centered at L3. Mild right lateral listhesis and retrolisthesis of L3 on L4. Chronic Schmorl's nodes and erosive-like irregularities at the L3-L4 and L4-L5 disc spaces. Disc levels: Multilevel degenerative changes, essentially unchanged as compared to 01/28/2021. High-grade spinal canal stenosis at L3-L4 and L4-L5. Moderate to severe neural foraminal narrowing at L3-L4 and L4-L5. Less pronounced degenerative changes of the remaining levels. Paraspinal soft tissues: Unremarkable. Please see separately reported CT abdomen/pelvis for the extra-spinal findings. IMPRESSION: 1. No acute fracture. 2. Mild dextroconvex curvature with mild degenerative malalignment at L3-L4, unchanged as compared to 01/28/2021. 3. Multilevel spondylosis, greatest at L3-L4 and L4-L5, unchanged.
--- NOTE | 2021-04-11 00:12 | CT_ITS ---
PROCEDURE INFORMATION: Exam: CT Thoracic Spine With Contrast Exam date and time: 04/11/2021 12:12 AM Age: 60 years old Clinical indication: Pain in thoracic spine; Without myelpathy or radiculopathy TECHNIQUE: Imaging protocol: Computed tomography images of the thoracic spine with intravenous contrast. Radiation optimization: All CT scans at this facility use at least one of these dose optimization techniques: automated exposure control; mA and/or kV adjustment per patient size (includes targeted exams where dose is matched to clinical indication); or iterative reconstruction. Contrast material: ISOVUE; Contrast volume: 75 ml; Contrast route: IV; COMPARISON: CT CERVICAL SPINE W CON 04/11/2021 1:39 AM FINDINGS: Vertebrae: No acute fracture. Thoracic vertebral body heights are maintained. No spondylolisthesis. There is a chronic laminectomy at T4. No endplate demineralization/erosion. Cervical spine CT reported separately. Discs/Spinal canal/Neural foramina: Mild multilevel disc height loss and degenerative endplate spurring. Scattered facet arthropathy, greatest at the upper and lower levels. No evidence of a significant thoracic spinal canal stenosis. Scattered mild to moderate neural foraminal narrowing, mostly involving the upper and lower thoracic levels. Paraspinal soft tissues: Unremarkable. Please see the recent reported CT abdomen/pelvis for description of extra-spinal findings. IMPRESSION: 1. No acute finding in the thoracic spine. 2. No high-grade thoracic spinal canal stenosis.
--- NOTE | 2021-04-11 00:12 | CT_ITS ---
PROCEDURE INFORMATION: Exam: CT Cervical Spine With Contrast Exam date and time: 04/11/2021 12:12 AM Age: 60 years old Clinical indication: Neck pain TECHNIQUE: Imaging protocol: Computed tomography images of the cervical spine with intravenous contrast. Radiation optimization: All CT scans at this facility use at least one of these dose optimization techniques: automated exposure control; mA and/or kV adjustment per patient size (includes targeted exams where dose is matched to clinical indication); or iterative reconstruction. Contrast material: ISOVUE; Contrast volume: 75 ml; Contrast route: IV; COMPARISON: CT HEAD/BRAIN WO CON 04/11/2021 1:26 AM FINDINGS: Bones/joints: No acute fracture. Vertebral body heights are maintained. Straightening of the expected cervical lordosis. Postsurgical changes consistent with laminectomies of C3-C5. Discs/Spinal canal/Neural foramina: Multilevel degenerative changes manifested as endplate osteophyte formation, mild uncovertebral hypertrophy, intervertebral disc height loss, and facet arthropathy. There is partial fusion of the left C3 and C4 posterior elements. No severe spinal canal narrowing. Severe right-sided neural foraminal narrowing at right C3/C4 and C6/C7. Thyroid: The thyroid gland is normal. Lungs: Lung apices are normal. Soft tissues: Unremarkable. IMPRESSION: 1. No acute osseous abnormality of the cervical spine. 2. No suspicious soft tissue abnormality or adenopathy. 3. Other findings as above.
--- NOTE | 2021-04-11 00:12 | XR_ITS ---
PROCEDURE INFORMATION: Exam: XR Chest Exam date and time: 04/11/2021 12:12 AM Age: 60 years old Clinical indication: Pain; Chest pressure TECHNIQUE: Imaging protocol: XR of the chest. Views: 4 or more views. COMPARISON: No relevant prior studies available. FINDINGS: Lungs: Mild hypoinflation and perihilar atelectasis. No consolidation. No overt pulmonary edema. Pleural spaces: Unremarkable. No pleural effusion. No pneumothorax. Heart/Mediastinum: Normal heart size. Aortic atherosclerosis. Bones/joints: Unremarkable. IMPRESSION: Mild hypoinflation and perihilar atelectasis.
[2021-04-11 00:34] LABS: Basophils # 0.1 K/mm3 (0-0.2); Basophils % 1.6 % (0.1-2.0); Eosinophils # 0.1 K/mm3 (0.0-0.4); Eosinophils % 1.2 % (0.1-12.0); Hematocrit 45.3 % (42.0-52.0); Hemoglobin 14.5 g/dL (14.1-18.0); Lymphocytes # 2.7 K/mm3 (0.7-4.5); Lymphocytes % 30.9 % (10-50); Mean Corpuscular HGB Conc 32.1 g/dL (31.8-35.4); Mean Corpuscular Hemoglobin 27.5 pg (27.0-31.2); Mean Corpuscular Volume 85.8 fl (80-94); Mean Platelet Volume 7.9 fl (7.4-10.4); Monocytes # 0.6 K/mm3 (0.1-1.0); Monocytes % 6.3 % (1.7-9.3); Neutrophils # 5.3 K/mm3 (1.8-7.8); Platelet Count 374 K/mm3 (142-424); Red Blood Count 5.28 M/mm3 (4.60-6.20); Red Cell Distribution Width 17.4 % (11.5-17.5); White Blood Count 8.8 K/mm3 (4.8-10.8)
[2021-04-11 00:41] LABS: Lactic Acid 0.7 mmol/L (0.7-2.1)
[2021-04-11 00:42] LABS: Alanine Aminotransferase 26 U/L (12-78); Albumin/Globulin Ratio 1.5 (1.1-1.8); Alkaline Phosphatase 91 U/L (38-126); Anion Gap 13.3 mEq/L (5-15); Aspartate Amino Transferase 29 U/L (17-59); Bilirubin,Total 0.5 mg/dl (0.2-1.3); Blood Urea Nitrogen 25 mg/dl (9-20); Calcium 11.3 mg/dl (8.4-10.2); Carbon Dioxide 29 mmol/L (22.0-30.0); Chloride 100 mmol/L (98-107); Creatinine Clearance Estimated 146 mL/min (50-200); Estimated Glomerular Filt Rate 115 ml/min (>60); GFR (African American) 140 ML/MIN (>60); Globulin 3.3 g/dL (1.3-3.2); Glucose 104 mg/dl (74-100); Potassium 4.3 mmoL/L (3.5-5.1); Sodium 138 mmol/L (136-145); Total Protein,Serum 8.3 g/dl (6.3-8.2)
[2021-04-11 00:46] LABS: Microscopic, Urine URINE MICROSCOPIC (MICROSCOPIC)
--- NOTE | 2021-04-11 00:46 | HMH.EDBACK ---
ED Disposition Clinical Impression: Lumbar spondylosis, Methamphetamine abuse, SIRS (systemic inflammatory response syndrome) UTI (urinary tract infection) Qualifiers: Urinary tract infection type: site unspecified Hematuria presence: without hematuria Qualified Code(s): N39.0 - Urinary tract infection, site not specified Disposition: Home, Self-Care Condition on Discharge: Fair Instructions: DI for Urinary Tract Infection (UTI) Additional Instructions: fluids and call pcp for urine culture results and follow up with urology and pcp Prescriptions: levoFLOXacin [Levaquin 500mg tab] 500 mg PO DAILY #7 tab Transmission Status: Pending to [facility]/pharmacy #[id number] Referrals: Colten Torre [Primary Care Provider] - Amadeo Braga MD [Staff Physician] - - Critical Care Critical Care Time: No Attestation: On 04/10/21, the high probability of a clinically significant, sudden or life threatening deterioration of the following system(s) required my full and direct attention, intervention and personal management. The time I documented below is in addition to time spent performing reported procedures but includes the following listed in this critical care notation. Medical Decision Making - Medical Records Medical records reviewed: Yes: I reviewed the patient's medical records. - [place] Inquiry Pt receiving controlled substance: No Vital Signs: 04/10/21 21:56 Temperature 98.0 F Temperature Source Oral Pulse Rate [Right] 101 H Respiratory Rate 20 Blood Pressure [Right Arm] 128/81 Blood Pressure Mean [Right Arm] 96 02 Sat by Pulse Oximetry 97 - Lab Data Lab results reviewed: Yes: I reviewed the patient's lab results. Lab Results 04/11/21 00:21: WBC 8.8, RBC 5.28, Hgb 14.5, Hct 45.3, MCV 85.8, MCH 27.5, MCHC 32.1, RDW 17.4, Plt Count 374, MPV 7.9, Neut % (Auto) 60.0, Lymph % (Auto) 30.9, [place] % (Auto) 6.3, Eos % (Auto) 1.2, Baso % (Auto) 1.6, Neut # (Auto) 5.3, Lymph # (Auto) 2.7, [place] # (Auto) 0.6, Eos # (Auto) 0.1, Baso # (Auto) 0.1, ESR 15 04/11/21 00:21: Sodium 138, Potassium 4.3, Chloride 100, Carbon Dioxide 29, Anion Gap 13.3, BUN 25 H, Creatinine 0.70, Estimated Creat Clear 146, Estimated GFR 115, Est GFR ( Amer) 140, Glucose 104 H, Calcium 11.3 H, Total Bilirubin 0.5, AST 29, ALT 26, Alkaline Phosphatase 91, C-Reactive Protein 3.3, Total Protein 8.3 H D, Albumin 5.0, Globulin 3.3 H, Albumin/Globulin Ratio 1.5, Procalcitonin 0.059 04/11/21 00:21: Lactate 0.7 04/11/21 00:40: Urine Color Yellow, Urine Appearance Cloudy, Urine pH 6.0, Ur Specific [place] 1.025, Urine Protein Negative, Urine Glucose (UA) Negative, Urine Ketones Negative, Urine Blood 1+, Urine Nitrate Positive, Urine Bilirubin Negative, Urine Urobilinogen 0.2, Ur Leukocyte Esterase 3+ A, Urine RBC 20-50, Urine WBC Tntc, Urine Bacteria 2+ 04/11/21 00:40: Urine Opiates Screen Negative, Urine Methadone Screen Negative, Ur Barbituates Screen Negative, Ur Phencyclidine Scrn Negative, Ur Amphetamines Screen Positive H, U Benzodiazepines Scrn Negative, Urine Cocaine Screen Negative, U Marijuana (THC) Screen Positive H Result diagrams: 04/11/21 00:21 04/11/21 00:21 Orders (Tests/Meds): ED MEDICATIONS Generic Name Dose Route Start Last Admin Trade Name Freq PRN Reason Stop Dose Admin Sodium Chloride 1,000 mls @ 999 mls/hr 04/11/21 00:30 04/11/21 00:47 Sod Chlor 0.9% 1000ml Bag IV 04/11/21 01:30 999 mls/hr .[id number] PRESTON Administration Discontinued Medications Generic Name Dose Route Start Last Admin Trade Name Freq PRN Reason Stop Dose Admin Ertapenem 1 gm/ Sodium 50 mls @ 100 mls/hr 04/11/21 04:44 04/11/21 04:47 Chloride IV 04/11/21 04:45 100 mls/hr ONCE ONE Administration Iopamidol 100 ml 04/11/21 01:45 04/11/21 01:45 Iopamidol-370 (76%);100ml Bottle IV 04/11/21 01:46 100 ml ONCE ONE Administration Iopamidol 40 ml 04/11/21 01:45 04/11/21 01:45 Iopamidol-370 (76%); 50ml Vial IV 04/11/21 01:46 40 ml
[2021-04-11 00:47] LABS: Appearance,Urine CLOUDY (Clear); Bilirubin,Urine Negative (Negative); Blood, Urine 1+ (Negative); Color,Urine YELLOW (Yellow); Glucose,Urine (UA) Negative (Negative); Ketones,Urine Negative (Negative); Leukocyte Esterase,Urine 3+ (Negative); Nitrate,Urine POSITIVE (Negative); Protein,Urine Negative (Negative); Specific Gravity, Urine 1.025 (1.005-1.030); Urobilinogen,Urine 0.2 EU/dl (0.2)
[2021-04-11 00:48] LABS: C-Reactive Protein 3.3 mg/L (0-4)
[2021-04-11 00:50] LABS: Bacteria,Urine 2+ /lpf; RBC,Urine 20-50 #/hpf (0-3); WBC,Urine TNTC #/hpf (0-3)
[2021-04-11 00:57] LABS: Erythrocyte Sedimentation Rate 15 mm/hr (0-20)
[2021-04-11 01:01] LABS: Procalcitonin 0.059 ng/mL (0.0-2.0)
--- NOTE | 2021-04-11 01:02 | CT_ITS ---
PROCEDURE INFORMATION: Exam: CT Abdomen And Pelvis With Contrast Exam date and time: 04/11/2021 1:02 AM Age: 60 years old Clinical indication: Abdominal pain; Generalized; Additional info: P(ain TECHNIQUE: Imaging protocol: Computed tomography of the abdomen and pelvis with contrast. Radiation optimization: All CT scans at this facility use at least one of these dose optimization techniques: automated exposure control; mA and/or kV adjustment per patient size (includes targeted exams where dose is matched to clinical indication); or iterative reconstruction. Contrast material: ISOVUE; Contrast volume: 75 ml; Contrast route: IV; COMPARISON: CT LUMBAR SPINE W CON 01/28/2021 2:00 AM FINDINGS: Lungs: Mild dependent atelectasis at the lung bases. No consolidation. Liver: Unremarkable. No intrahepatic biliary dilation. Gallbladder and bile ducts: Cholelithiasis. No gallbladder wall thickening. No biliary dilation. Pancreas: Unremarkable. No main pancreatic duct dilation. Spleen: Calcified granulomas in the spleen. No splenomegaly. Adrenal glands: Unremarkable. Kidneys and ureters: There is a 1.6 cm cyst at the inferior pole of left kidney. A few indeterminate subcentimeter low-attenuation renal lesions are also noted, statistically most likely benign. No hydronephrosis. A 0.2 cm nonobstructing right lower pole caliceal calculus is noted. Stomach and bowel: There is a large amount of solid stool packed throughout the colon, suggesting constipation. Rectum is distended with stool, measuring 8 x 6.7 cm in cross-section. No small bowel dilation or obstruction. Stomach is nondistended. Small hiatal hernia. Appendix: Normal appendix. Intraperitoneal space: No pneumoperitoneum. No ascites. Vasculature: No abdominal aortic aneurysm. Lymph nodes: No enlarged lymph nodes. Urinary bladder: Bladder is distended with fluid. Irregular bladder wall thickening appears similar to lumbar spine CT of 01/28/2021, and may be chronic. Reproductive: Calcifications present in the prostate gland. Prostate gland mildly enlarged. Bones/joints: Chronic/corticated ununited defect of the left L1 transverse process. No acute fracture. Transitional lumbosacral anatomy. Mild dextroconvex curvature of the lumbar spine. Spondylosis, as described in separate lumbar spine CT. Soft tissues: Bilateral inguinal hernias contain adipose tissue. Right testicle is retracted into the inguinal canal, with small volume of surrounding fluid/hydrocele. There is a umbilical hernia sac measuring 4.5 x 3.0 x 5.0 cm. This contains adipose tissue, with mild vascular congestion similar to prior. IMPRESSION: 1. Large colorectal stool burden suggesting constipation, with possible fecal impaction. 2. Distended urinary bladder with mild irregular wall thickening, similar to 01/28/2021. 3. Right testicle retracted into the inguinal canal. Small volume surrounding fluid/hydrocele. This appearance is nonspecific, may be further assessed with ultrasound as clinically needed. 4. Other chronic findings as above, which appear similar to prior exam. COMMENTS: Consistent with the [place] [employer]'s Incidental Findings Committee white paper (J Am Julián Radiol 2018): Any incidental renal lesion less than 1 cm or classified as too small to characterize, or any incidental cystic renal lesion characterized as simple-appearing, is likely benign. No follow-up imaging is recommended for these lesions per consensus recommendations based on imaging criteria.
[2021-04-11 01:17] LABS: Barbiturates Screen,Urine Negative ng/ml (<200)
[2021-04-11 01:19] LABS: Cannabinoid Screen,Urine Positive ng/ml (<50); Cocaine Screen,Urine Negative ng/ml (<300)
[2021-04-11 01:20] LABS: Methadone Screen,Urine Negative ng/ml (<300)
[2021-04-11 01:21] LABS: Opiate Screen,Urine Negative ng/ml (<300); Phencyclidine Screen,Urine Negative ng/ml (<25)
[2021-04-11 01:31] LABS: Amphetamine/Metha Screen,Urine Positive ng/ml (<1000)
[2021-04-11 01:32] LABS: Benzodiazepines Screen,Urine Negative ng/ml (<200)
[2021-04-11 06:02] VITALS: BP 140/78; PULSE 82; RESP 18; TEMP 36.9; O2SAT 97
--- NOTE | 2021-04-13 08:08 | PC.NURSE ---
culture results given to Dr. Ramos at this time.
== END 2021-04-11 06:08 | disposition home or self-care (01) ==
PROVIDERS: Emergency Provider Emergency Medicine; PCP Pediatrics
DX: M47.816 Spondylosis without myelopathy or radiculopathy, lumbar region (principal); R65.10 Systemic inflammatory response syndrome (SIRS) of non-infectious origin without acute organ dysfunction; N39.0 Urinary tract infection, site not specified; B96.1 Klebsiella pneumoniae [K. pneumoniae] as the cause of diseases classified elsewhere; M54.2 Cervicalgia; R10.84 Generalized abdominal pain; F15.10 Other stimulant abuse, uncomplicated; F17.210 Nicotine dependence, cigarettes, uncomplicated; Z79.899 Other long term (current) drug therapy; Z88.5 Allergy status to narcotic agent; Z88.8 Allergy status to other drugs, medicaments and biological substances; Z98.1 Arthrodesis status
CPT/HCPCS: 70450; 71045; 72126; 72129; 72132; 74177; 80053; 80305; 81001; 83605; 84145; 85025; 85651; 86140; 87040; 87086; 87088; 87186; 96361; 96365; 96367; 96374; 96375; 99285; J1335; Q9967

== ENCOUNTER 2022-04-08 10:41 | Emergency (ER) | payer MEDICARE, SELFPAY ==
[2022-04-08 10:55] VITALS: BP 142/94; PULSE 97; RESP 18; TEMP 36.6; O2SAT 96; BMI 29.8
--- NOTE | 2022-04-08 10:56 | XR_ITS ---
PROCEDURE INFORMATION: Exam: XR Pelvis Exam date and time: 04/08/2022 11:21 AM Age: 61 years old Clinical indication: Pelvic pain; Patient HX: PT has limited use of legs due to previous meningitis; Additional info: Fall, pain TECHNIQUE: Imaging protocol: Radiologic exam of the pelvis. Views: 1 or 2 view. COMPARISON: CT ABDOMEN PELVIS W CON 04/11/2021 1:31 AM FINDINGS: Bones/joints: Unremarkable. No acute fracture. Mild degenerative changes of both hips and sacroiliac joints. Soft tissues: Unremarkable. IMPRESSION: No acute findings.
--- NOTE | 2022-04-08 10:56 | CT_ITS ---
PROCEDURE INFORMATION: Exam: CT Lumbar Spine Without Contrast Exam date and time: 04/08/2022 11:24 AM Age: 61 years old Clinical indication: Injury or trauma; Fall; Blunt trauma (contusions or hematomas); Patient HX: PT has limited use of legs due to previous meningitis; Additional info: Fall, back pain TECHNIQUE: Imaging protocol: Computed tomography of the lumbar spine without contrast. Radiation optimization: All CT scans at this facility use at least one of these dose optimization techniques: automated exposure control; mA and/or kV adjustment per patient size (includes targeted exams where dose is matched to clinical indication); or iterative reconstruction. REPORTING DATA: Count of CT and Cardiac NM exams in prior 12 months: This patient has received 5 known CTs and 0 known cardiac nuclear medicine studies in the 12 months prior to the current study. COMPARISON: CT LUMBAR SPINE W CON 04/11/2021 1:36 AM FINDINGS: Bones/joints: No acute fracture. Normal alignment. No significant disc bulge or herniation. No severe spinal canal stenosis. No significant neural foraminal narrowing. Multilevel degenerative disc and joint space changes most pronounced at L3/4 and L4/5. Soft tissues: Unremarkable. IMPRESSION: No acute findings. Degenerative changes.
[2022-04-08 11:30] VITALS: BP 131/83; PULSE 84; RESP 18; O2SAT 99
--- NOTE | 2022-04-08 11:36 | [facility].EDGENADL ---
Discharge Plan Disposition Patient Disposition: Home, Self-Care Condition: Good Prescriptions Prescriptions: New baclofen 10 mg tablet 10 mg PO BID PRN (Reason: muscle spasm) Qty: 10 0RF prednisone 20 mg tablet 60 mg PO DAILY 5 Days Qty: 15 0RF No Action cyclobenzaprine 10 MG tablet 10 mg PO TIDP PRN (Reason: muscle spasms) olanzapine 5 MG tablet 5 mg PO TID tamsulosin 0.4 MG capsule 0.4 mg PO HS pantoprazole 40 MG tablet,delayed release (DR/EC) 40 mg PO HS bisacodyl 5 MG tablet,delayed release (DR/EC) 5 mg PO DAILYP PRN (Reason: Constipation) cefdinir 300 MG capsule 300 mg PO BID Qty: 14 0RF levofloxacin 500 MG tablet 500 mg PO DAILY Qty: 7 0RF Referrals Follow up/Referrals: Colten Torre [Primary Care Provider] - See instructions Clinical Impressions Clinical Impression: Lumbar back pain, Hip sprain Print Language Print Language: Occitan Discharge ED Provider: Chato Cochran General Adult HPI General Chief complaint: Fall Stated complaint: Fall [email or web address] Hip pain Time Seen by Provider: 04/08/22 12:14 Mode of Arrival: Wheelchair Source of Information: Patient and Relative Limitations: Physical Limitations Description of Symptoms (Recalled from ER Triage Doc. by RN): pt comes in with complaints of fall 3 days ago. pt complains of pain in lower back, left hip, right hip pain. pt states that he tripped over his own feet, lost his balance, and had a fall onto the sidewalk. pt reports no LOC. History of Present Illness HPI narrative: Patient presents to the emergency department after reportedly falling on Sunday of this week. The patient states that he has a history of paraplegia and has difficulty with ambulation. He typically uses a walker. He states he was using a cane at the time and lost his balance and fell to the ground but denies hitting his head or losing consciousness. He comes in complaining of lower lumbar spine tenderness with bilateral hip pain. He describes significant pain with ambulation. Denies any new numbness, tingling or weakness in any of his arms or legs. States he has been taking his medication at home without any significant improvement in his pain. Related Data Home Medications Medication Instructions Recorded Confirmed bisacodyl 5 mg tablet,delayed 5 mg PO DAILYP PRN Constipation 01/28/21 01/28/21 release cyclobenzaprine 10 mg tablet 10 mg PO TIDP PRN muscle spasms 01/28/21 01/28/21 olanzapine 5 mg tablet 5 mg PO TID mood 01/28/21 01/28/21 pantoprazole 40 mg tablet,delayed 40 mg PO HS acid reflux 01/28/21 01/28/21 release tamsulosin 0.4 mg capsule 0.4 mg PO HS urinary issues 01/28/21 01/28/21 Previous Rx's Medication Instructions Recorded cefdinir 300 mg capsule 300 mg PO BID #14 caps 01/28/21 levofloxacin 500 mg tablet 500 mg PO DAILY #7 tabs 04/11/21 baclofen 10 mg tablet 10 mg PO BID PRN muscle spasm #10 04/08/22 tabs prednisone 20 mg tablet 60 mg PO DAILY 5 days #15 tabs 04/08/22 Allergies Allergy/AdvReac Type Severity Reaction Status Date / Time codeine [CODEINE] Allergy Unknown I-RASH Verified 04/08/22 11:03 quetiapine [From [facility]] Allergy Unknown Verified 04/08/22 11:03 [facility] Disclaimer: The information contained in this section may have been updated after the patient was seen, as this information can be updated by other users. Social History Smoking Status: Current every day smoker tobacco type: cigarettes packs per day: 1 alcohol intake: current substance use type: marijuana current occupational status: unemployed and other Travel in the last 8 weeks: None ROS Obtained: Yes All systems reviewed & no additional complaints except as documented Musculoskeletal Musculoskeletal: Reports back pain and Reports radiating pain into limb Physical Exam General General appearance: alert and in no apparent distress Comme
[2022-04-08 12:01] VITALS: BP 172/149; PULSE 88; O2SAT 100
[2022-04-08 12:22] VITALS: BP 129/69; PULSE 87; RESP 20; TEMP 36.6; O2SAT 100
== END 2022-04-08 12:23 | disposition home or self-care (01) ==
PROVIDERS: Emergency Provider Emergency Medicine; PCP Pediatrics
DX: S79.911A Unspecified injury of right hip, initial encounter (principal); M54.50 Low back pain, unspecified; M25.551 Pain in right hip; W01.0XXA Fall on same level from slipping, tripping and stumbling without subsequent striking against object, initial encounter; M25.552 Pain in left hip; F17.210 Nicotine dependence, cigarettes, uncomplicated
CPT/HCPCS: 72131; 72170; 96372; 96374; 99285